=== PATIENT | male | born 1970 | race Caucasian/White ===

== ENCOUNTER 2016-05-09 19:32 | Emergency (ER) | payer MEDICAID ==
--- NOTE | 2016-05-09 20:29 | ER Document Report ---
ED Medical Screen (RME) - General Stated Complaint: HAND PAIN Notes: 45 yo male c/o bilat hand pain, progressively worsening over the past month. feels like pins and needles. having trouble grasping. no injury. worse in am. + stiffness and numbness. no relief with Tylenol or Motrin. + smoker - Related Data Allergies/Adverse Reactions: No Known Allergies Allergy (Unverified 05/09/16 20:25)
[2016-05-09] MEDS ORDERED: TRAMADOL HCL 50 MG TABLET PO ONE (22:38)
[2016-05-09] MEDS ORDERED: PREDNISONE 20 MG TABLET PO ONE (22:38)
--- NOTE | 2016-05-09 22:38 | ER Document Report ---
ED General - General Chief Complaint: Hand Pain Stated Complaint: HAND PAIN Notes: Patient is a pleasant 45-year-old male who presents with complaint of bilateral hand pain. He is a weapons mechanic. He says that he's been having problems with his hands for a while now been the last 1-2 weeks it's become much worse. He says in the morning his hands are sometimes hard to open her very tight. He has swelling and soreness to his joints in his hand. No pain in the elbows or shoulders. No new injury. No known history of psoriatic or rheumatoid arthritis. No other complaints at this time. TRAVEL OUTSIDE OF THE [place] IN LAST 30 DAYS: No - Related Data Allergies/Adverse Reactions: No Known Allergies Allergy (Unverified 05/09/16 20:25) Past Medical History - Social History Smoking Status: Current Every Day Smoker Chew tobacco use (# tins/day): No Frequency of alcohol use: Rare Drug Abuse: None Family History: Reviewed & Not Pertinent Patient has suicidal ideation: No Patient has homicidal ideation: No Renal/ Medical History: Denies: Hx Peritoneal Dialysis Review of Systems - Review of Systems Notes: My Normal Review Basic REVIEW OF SYSTEMS: CONSTITUTIONAL : Denies fever, chills, or sweats. Denies recent illness. MUSCULOSKELETAL: Hand pain SKIN: Denies rash or skin lesions. NEUROLOGICAL: Denies altered mental status or loss of consciousness. Denies headache. Denies weakness or paralysis or loss of use of either side. Denies problems with gait or speech. Some tingling type sensations of both hands. ALL OTHER SYSTEMS REVIEWED AND NEGATIVE. Physical Exam - Vital signs Vitals: Temp Pulse BP Pulse Ox 98.4 F 80 123/68 96 05/09/16 19:45 05/09/16 19:45 05/09/16 19:45 05/09/16 19:45 - Notes Notes: General Appearance: Well nourished, alert, cooperative, no acute distress, moderate obvious discomfort. Vitals: reviewed, See vital signs table. Eyes: PERRL, EOMI, Conjuctiva clear Extremities: strength 5/5 in all extremities, good pulses in all extremities, very mild swelling to the knuckles of both hands. No redness. No erythema. No signs infection. Patient is able to move the fingers of his hands but obviously has some pain in doing so. Exam is very consistent with arthritis. Remainder of upper extremity exam is nontender without any swelling., no edema. Skin: warm, dry, appropriate color, no rash Neuro: speech clear, oriented x 3, normal affect, responds appropriately to questions. Course - Vital Signs Vital signs: Temp Pulse Resp BP Pulse Ox 98.2 F 70 20 126/80 H 96 05/09/16 22:51 05/09/16 22:51 05/09/16 22:51 05/09/16 22:51 05/09/16 22:51 - Transfer of Care Notes: 05/10/16 06:32 I suspect the patient most likely suffers from severe osteoarthritis from his long-term use of his hands as a weapons mechanic. I did talk to his informed him that he may have some underlying rheumatoid or psoriatic arthritis. Informed his report he falls up with primary care doctor for reevaluation. He may need a referral to staff climate scientist if his pain continues. I will place him on a steroid taper. I encourage him to return to ER if has worsening of symptoms. Patient agrees with plan and will be discharged home. Discharge - Discharge Clinical Impression: Hand pain Qualifiers: Laterality: bilateral Qualified Code(s): M79.641 - Pain in right hand Condition: Good Disposition: HOME, SELF-CARE Instructions: Oral Narcotic Medication ([facility]) Additional Instructions: Please return to the ER immediately if you develop worsening pain, worsening swelling, or have further concerns. Please follow up closely with your primary care physician for further treatment options for your hands. Please apply cold to your hands for 10 minutes at a time. Prescriptions: Prednisone 10 mg PO ASDIR #42 tablet Tramadol HCl [Ultram] 50 mg PO Q6 PRN #20 tablet PRN Reason: Forms: Return to Work
[2016-05-09 22:55] VITALS: BP 126/80
== END 2016-05-09 22:57 | disposition home or self-care (01) ==
LOC: ER 19:32
DX: M79.641 Pain in right hand (principal); M79.642 Pain in left hand; M25.442 Effusion, left hand; M25.441 Effusion, right hand
CPT/HCPCS: 99283; J7512